=== PATIENT | male | born 1980 | race Caucasian/White ===

== ENCOUNTER → 2020-09-15 | Outpatient (CLI) | payer OTHER ==
[~2020-09-15] MED LIST: AMBIEN CR12.5 MG PO; CLARITIN10 MG PO; FLONASE 0.05% N16 GM; IBU800 MG PO; KEFLEX500 MG PO; MOBIC7.5 MG PO; MYCOSTATIN CREA15 GM TOP; NORCO 10-325 T1 EACH PO; RESTORIL15 MG PO; VITAMIN C500 M1 PO
== END ==
LOC: KOH-I 11:12
DX: M79.672 Pain in left foot (principal); M25.572 Pain in left ankle and joints of left foot; M19.072 Primary osteoarthritis, left ankle and foot
CPT/HCPCS: 73610; 73630

== ENCOUNTER → 2020-10-21 | Outpatient (CLI) | payer OTHER | LOC: KOH-I 13:00 | DX: Z48.817 Encounter for surgical aftercare following surgery on the skin and subcutaneous tissue (principal); M79.672 Pain in left foot; M72.2 Plantar fascial fibromatosis | CPT/HCPCS: 73718 ==